=== PATIENT | male | born 1955 | race Caucasian/White ===

== ENCOUNTER 2016-09-17 09:49 | Emergency (ER) | payer BC ==
[~2016-09-17 09:49] MED LIST: ASTELIN NAS; FISH-EPA1000 MG PO; JUICE PLUS PO; OSTEO BIFLEX PO; PRILOSEC OTC20 MG PO; SAW PALMETTO PO; ZYRTEC-D ALG PO
== END 2016-09-17 10:25 | disposition home or self-care (01) ==
LOC: ER 09:49
PROC: 2W3TXYZ Immobilization of Left Foot using Other Device (ICD-10-PCS; principal; 2016-09-17)
DX: M79.672 Pain in left foot (principal); E11.9 Type 2 diabetes mellitus without complications; K21.9 Gastro-esophageal reflux disease without esophagitis; Z88.0 Allergy status to penicillin; Z79.899 Other long term (current) drug therapy; Z88.1 Allergy status to other antibiotic agents
CPT/HCPCS: 73630-LT; 96372; 99283; J1885